=== PATIENT | female | born 1945 | race Caucasian/White ===

== ENCOUNTER → 2017-10-15 | Outpatient (CLI) | payer OTHER, MEDICARE ==
[~2017-10-15] MED LIST: ACETAMINOPHEN650 M5 PO; ALDACTONE25 MG PO; CARDIZEM CD120 MG PO; LEVOXYL150 MCG PO; LIPITOR80 MG PO; LISINOPRIL10 MG PO; LISINOPRIL20 MG PO; LISINOPRIL5 MG PO; PACERONE 200 M200 M1 PO; PRADAXA150 MG PO; TOPROL XL25 MG PO; XARELTO20 MG PO
[2017-10-15 09:07] LABS: HEMATOCRIT 47.2 % (37.0-47.0); HEMOGLOBIN 15.9 gm/dL (12.0-15.0); MCHC 33.7 g/dL (28.0-37.0); MCV 94.9 fL (80.0-100.0); RBC 4.97 mil/uL (4.20-5.00); RDW 13.7 % (10.5-14.5); WBC 6.5 thou/uL (4.0-11.0)
[2017-10-15 09:28] LABS: CALCIUM 9.1 mg/dL (8.5-10.1); CREATININE 1.2 mg/dL (0.6-1.0); POTASSIUM 4.3 mmol/L (3.5-5.1)
[2017-10-15 09:34] LABS: ALBUMIN 3.6 g/dL (3.4-5.0); TOTAL BILIRUBIN 1.3 mg/dL (<0.1-1.0)
== END ==
LOC: LABMALL 08:25 → CAT 12:23
PROVIDERS: Internal Medicine Cardiovascular Disease
DX: I48.91 Unspecified atrial fibrillation (principal); J98.11 Atelectasis; I10 Essential (primary) hypertension; E78.5 Hyperlipidemia, unspecified; E03.9 Hypothyroidism, unspecified; G47.33 Obstructive sleep apnea (adult) (pediatric)

== ENCOUNTER 2017-10-21 06:42 | Observation (INO) | payer OTHER, MEDICARE ==
[2017-10-21] VITALS (7 sets, daily range): BP systolic 97–122; BP diastolic 50–85
[~2017-10-21] VITALS: Ht 177.8 cm; Wt 118.4 kg
--- NOTE | ~2017-10-21 | P ---
[facility] [place] [address] PROCEDURE REPORT Name: JARED CALLES Room #: 201-P [facility] Max MRaymond#: [id number] Admission: 10/21/17 Attend Phys: Javier May MD Discharge: 10/22/17 Date of : 45 Report #: [id number] THIS REPORT FOR: //name// CC: Javier Malik DATE OF SERVICE: 11/05/2017 PREOPERATIVE DIAGNOSIS: Paroxysmal atrial fibrillation. HISTORY OF PRESENT ILLNESS: The patient is a 72-year-old with history of paroxysmal AFib, resolved nonischemic cardiomyopathy as well as hypertension and hyperlipidemia who is here for an AFib ablation. PROCEDURES PERFORMED: 1. AFib ablation, CPT code 43289. 2. 3D mapping, CPT code 00469. 3. Intracardiac echo, CPT code 51528. PROCEDURE: The patient was brought to the EP laboratory in a fasting and sedated state and prepped and draped in a sterile fashion. I obtained access to the right femoral vein times 3, placing an 8-Guamanian, 9-Guamanian and 7-Guamanian short sheath into the right femoral vein using the modified Seldinger technique. At baseline, the patient was in AFib with a ventricular cycle length of 530 milliseconds, QRS duration 120 milliseconds, QT interval 405 milliseconds. Using intracardiac ultrasound, a 3D geometry of the left atrium was created and this was merged with the cardiac CT scan. The patient was then systemically heparinized and a transseptal was performed using an SL1 sheath and a [place] needle. Next, I placed a [employer] Colon Lasso catheter in the left atrium and obtained 3D geometry of the left atrium. Next, the SL1 sheath was exchanged for the cryo sheath. Next, I isolated the left superior pulmonary vein with 2 freezes and it isolated within 60 seconds of the second freeze. I then turned my attention to the left inferior pulmonary vein. This vein required a total of 5 freezes, but would reconnect after approximately 1 minute. After the fifth freeze, the vein isolated after 30 seconds and this remained isolated. I then turned my attention to the right-sided veins with phrenic nerve pacing performed from the decapolar catheter placed up in the right subclavian vein. The right superior pulmonary vein isolated after three 4 minute freezes in the right inferior pulmonary vein, the right inferior pulmonary vein required a total of 3 freezes. The right inferior vein had both an upper and lower branch and in order to obtain isolation, I had to subselect to each of these branches. Next, the patient was cardioverted and all veins were isolated, the left inferior pulmonary vein had reconnected after the fourth freeze and as discussed, the fifth freeze resulted in isolation in 30 seconds. As such, all veins were isolated. The patient was doing well. I used intracardiac ultrasound to verify that there was no pericardial effusion, then the patient received systemic [address] [address] PROCEDURE REPORT Name: JARED CALLES Room #: 201-P [facility] Garza#: [id number] Admission: 10/21/17 Attend Phys: Javier May MD Discharge: 10/22/17 Date of : 45 Report #: [id number] protamine and once the ACT was within acceptable range, all catheters and sheaths were pulled, hemostasis obtained, and the patient awoke neurologically and hemodynamically intact. CONCLUSIONS: Successful AFib ablation with isolation of the pulmonary veins. <ELECTRONICALLY SIGNED> By: Javier May MD 11/15/17 1748 1432 1855 Javier May MD /nt
[~2017-10-21 06:42] MED LIST changes: -LISINOPRIL5 MG PO; -PRADAXA150 MG PO; -TOPROL XL25 MG PO
[2017-10-21 07:13] LABS: ABSOLUTE NEUTROPHILS 4.2 thou/uL (1.4-8.2); BASOPHILS 0.4 % (0.0-2.0); HEMATOCRIT 47.7 % (37.0-47.0); LYMPHOCYTES 30.4 % (24.0-44.0); MCH 31.7 pg (26.0-34.0); MCHC 33.6 g/dL (28.0-37.0); MCV 94.5 fL (80.0-100.0); MONOCYTES 10.2 % (1.0-8.0); PLATELET COUNT 163 thou/uL (150-400); RBC 5.05 mil/uL (4.20-5.00); WBC 7.3 thou/uL (4.0-11.0)
[2017-10-21 07:21] LABS: CALCIUM 8.9 mg/dL (8.5-10.1); CREATININE 1.3 mg/dL (0.6-1.0); POTASSIUM 4.6 mmol/L (3.5-5.1)
[2017-10-21] MEDS ORDERED: LISINOPRIL5 MG PO (07:23)
[2017-10-21] MEDS ORDERED: PRADAXA150 MG PO (07:24)
[2017-10-21] MEDS ORDERED: TOPROL XL25 MG PO (07:25)
[2017-10-21 07:27] LABS: ALBUMIN 3.6 g/dL (3.4-5.0); TOTAL BILIRUBIN 0.7 mg/dL (<0.1-1.0); TOTAL PROTEIN 7.1 g/dL (6.4-8.2)
[2017-10-21 07:28] LABS: APTT 40.7 Seconds (24.5-32.8); INR 1.1; PROTIME 11.1 Seconds (9.3-11.4)
[2017-10-22 02:07] VITALS: BP 108/57
[2017-10-22 04:42] VITALS: BP 83/48
[2017-10-22 07:18] VITALS: BP 93/58
[2017-10-22 09:31] VITALS: BP 113/70
== END 2017-10-22 10:35 | disposition home or self-care (01) ==
LOC: CATH 06:42 → 2N 13:53 → ENTRNSPT 10-22 10:22 → EDTRNSPTSTS 10-22 10:28 → 2N 10-22 10:35
PROVIDERS: Internal Medicine Cardiovascular Disease
DX: I48.0 Paroxysmal atrial fibrillation (principal); E78.5 Hyperlipidemia, unspecified; I49.3 Ventricular premature depolarization; I48.91 Unspecified atrial fibrillation; E03.9 Hypothyroidism, unspecified; Z98.890 Other specified postprocedural states; Z85.3 Personal history of malignant neoplasm of breast; I10 Essential (primary) hypertension
CPT/HCPCS: 62110; 62900; 65020; 65040; 65043; 70005

== ENCOUNTER → 2017-11-05 | Outpatient (CLI) | payer OTHER, MEDICARE ==
[~2017-11-05] VITALS: Ht 177.8 cm; Wt 116.1 kg
[~2017-11-05] MED LIST changes: +LISINOPRIL5 MG PO; +PRADAXA150 MG PO; +TOPROL XL25 MG PO
--- NOTE | ~2017-11-05 | P ---
[facility] [place] [address] PROCEDURE REPORT Name: WILLIAN CALLESINE [id number] Admission: 11/05/17 Attend Phys: Javier May MD Discharge: Date of : 45 Report #: [id number] THIS REPORT FOR: //name// CC: Javier Malik PREOPERATIVE DIAGNOSIS: Atrial fibrillation. POSTOPERATIVE DIAGNOSIS: Atrial fibrillation. DESCRIPTION OF PROCEDURE: The patient was brought to the procedure suite in a fasting and unsedated state. She underwent informed consent. She was then sedated by Anesthesiology Service. She then underwent 200 joule synchronized cardioversion with religious of sinus rhythm. CONCLUSIONS: Successful cardioversion with religious of sinus rhythm. <ELECTRONICALLY SIGNED> By: Javier May MD 12/13/17 1407 1326 192 Javier May MD /nt
--- NOTE | ~2017-11-05 | EKG ---
[place] [address] [facility] 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: Sandra NAIR : 1945 Requested By: Javier May Order Number: [id number] MD: Art Johnson Measurements Intervals [place] Rate: 53 P: 14 ME: 191 QRS: -37 QRSD: 146 T: -61 QT: 525 QTc: 493 Interpretive Statements Sinus rhythm Leftward axis Nonspecific intraventricular conduction delay ST and T wave abnormality, consider inferolateral ischemia Compared to ECG 06/06/2013 06:49:12 Sinus rhythm has replaced atrial fibrillation Electronically Signed On 11-06-2017 7:57:36 FELLER OPERATOR by Art Johnson [email or web address] <ELECTRONICALLY SIGNED> By: Art Johnson MD, [facility] 11/06/17 0757 1237 1237 Art Johnson MD, [facility] /EPI
[2017-11-05 10:20] VITALS: BP 110/75
[2017-11-05 10:31] LABS: HEMOGLOBIN 15.2 gm/dL (12.0-15.0); MCH 31.8 pg (26.0-34.0); MCHC 33.1 g/dL (28.0-37.0); MCV 96.1 fL (80.0-100.0); RBC 4.78 mil/uL (4.20-5.00); RDW 14.4 % (10.5-14.5); WBC 6.6 thou/uL (4.0-11.0)
[2017-11-05 10:42] LABS: CALCIUM 8.9 mg/dL (8.5-10.1); CREATININE 1.4 mg/dL (0.6-1.0); POTASSIUM 4.3 mmol/L (3.5-5.1)
[2017-11-05 10:44] LABS: INR 1.3; PROTIME 13.1 Seconds (9.3-11.4)
== END | disposition home or self-care (01) ==
LOC: CATH 09:57
PROVIDERS: Internal Medicine Cardiovascular Disease
DX: I48.91 Unspecified atrial fibrillation (principal); I10 Essential (primary) hypertension; E78.5 Hyperlipidemia, unspecified; I42.9 Cardiomyopathy, unspecified; E03.9 Hypothyroidism, unspecified; Z98.890 Other specified postprocedural states; Z79.899 Other long term (current) drug therapy; Z79.01 Long term (current) use of anticoagulants; Z96.652 Presence of left artificial knee joint; Z85.3 Personal history of malignant neoplasm of breast; Z82.49 Family history of ischemic heart disease and other diseases of the circulatory system
CPT/HCPCS: 62110; 62900

== ENCOUNTER → 2018-12-04 | Outpatient (CLI) | payer OTHER, MEDICARE ==
[~2018-12-04] VITALS: Ht 177.8 cm; Wt 113.4 kg
[2018-12-04 07:16] VITALS: BP 145/84
--- NOTE | 2018-12-04 08:44 | NUR ---
Post EVONNE monitoring. Pt resting well. Awakes per verbal commands. VSS. SR with PVCs noted. Family in room. Provider spoke with family. Will continue to monitor.
--- NOTE | 2018-12-04 09:29 | TEE ---
[facility] [place] [address] TRANSESOPHAGEAL ECHOCARDIOGRAM Name: JARED CALLES Room #: REG CL CooperAnaDemetriAna#: [id number] ������������� Admission: 12/04/18 ������������� Attend Phys: Art Johnson, Discharge: ��� ������������� ��� Date of : 45 Date of Service: 12/04/18 0928 �� Report #: [id number] �������� ��������������������������������������������[id number] THIS REPORT FOR: //name// APPROVED REPORT Study performed: 12/04/2018 08:06:18 EXAM: Comprehensive 2D, Doppler, and color-flow Echocardiogram Patient Location: [facility] Room #: 9 BSA: 2.29 HR: 70 bpm BP: 153/80 mmHg Other Information Study Quality: Excellent Indications Mitral Valve Disease Mitral Valve Prolapse Echo Enhancing Agent Indication: Rule out Shunt Agent(s) / Amount(s) Used: Agitated Saline 7 cc Procedure After obtaining informed consent, patient underwent transesophageal echo in the [employer]. Type of Sedation : Conscious Sedation Sedation was administered by Nurse. Sedation was achieved intravenously with: Versed (5 mg) Fentanyl (50mcg) Transesophageal probe was inserted and advanced into esophagus without difficulty by Art Johnson MD. Echo enhancement indication: R/O Septal defect. Echo enhancement agent administered: Agitated Saline The EVONNE was performed without complications. Throughout the procedure, the blood pressure, pulse oximetry, cardiac rhythm, and rate were monitored. The patient tolerated the procedure without adverse effects. Recovery from conscious sedation was uneventful and vital signs were stable. Left Ventricle [facility] [address] [place] [address] TRANSESOPHAGEAL ECHOCARDIOGRAM Name: JARED CALLES Room #: REG COUNT INCLUDES THE [facility]#: [id number] ������������� Admission: 12/04/18 ������������� Attend Phys: Art Johnson, Discharge: ��� ������������� ��� Date of : 45 Date of Service: 12/04/18 0928 �� Report #: [id number] �������� ��������������������������������������������[id number] The left ventricle is normal size. There is normal left ventricular wall thickness. Left ventricular systolic function is mild to moderately decreased. LVEF is 40%. Right Ventricle The right ventricle is normal size. The right ventricular systolic function is normal. Atria Left atrium is dilated. No thrombus is visualized in the left atrium or appendage. No shunting by contrast bubble injection The right atrium size is normal. Aortic Valve The aortic valve is normal in structure. No aortic regurgitation is present. There is no aortic valvular stenosis. Mitral Valve Mitral valve leaflets appear myxomatous, bileaflet prolapse Moderate to moderately severe mitral regurgitation No evidence of mitral valve stenosis. Tricuspid Valve The tricuspid valve is normal in structure. There is no tricuspid valve regurgitation noted. Pulmonic Valve The pulmonary valve is normal in structure. There is no pulmonic valvular regurgitation. Great Vessels The aortic root is normal in size. IVC is normal in size and collapses >50% with inspiration. Pericardium There is no pericardial effusion. Critical Notification Critical Value: Yes <Conclusion> Left ventricular systolic function is mild to moderately decreased. LVEF is 40%. Left atrium is dilated. No thrombus is visualized in the left atrium or appendage. [facility] [address] [place] [address] TRANSESOPHAGEAL ECHOCARDIOGRAM Name: JARED CALLES Room #: REG [facility] [id number] ������������� Admission: 12/04/18 ������������� Attend Phys: Art Johnson, Discharge: ��� ������������� ��� Date of : 45 Date of Service: 12/04/18927 �� Report #: [id number] �������� ��������������������������������������������[id number] No shunting by contrast bubble injection The aortic valve is normal in structure. No aortic regurgitation or stenosis Mitral valve leaflets myxomatous, bileaflet prolapse Moderate to moderately severe mitral regurgitation There is no pericardial effusion. ��������������������������������������������� <ELECTRONICALLY SIGNED> ���������������������������������������� By: Art Johnosn MD, [facility] ��������������������������������������������� 12/04/18927 7 7 Art Johnson MD, [facility] /INF
== END | disposition home or self-care (01) ==
LOC: CATH 06:49
DX: I35.1 Nonrheumatic aortic (valve) insufficiency (principal); I34.1 Nonrheumatic mitral (valve) prolapse; I10 Essential (primary) hypertension; E78.5 Hyperlipidemia, unspecified; E03.9 Hypothyroidism, unspecified; I42.9 Cardiomyopathy, unspecified; I48.91 Unspecified atrial fibrillation; Z82.49 Family history of ischemic heart disease and other diseases of the circulatory system; Z96.652 Presence of left artificial knee joint; Z98.890 Other specified postprocedural states; Z79.899 Other long term (current) drug therapy; Z85.3 Personal history of malignant neoplasm of breast; Z79.01 Long term (current) use of anticoagulants

== ENCOUNTER → 2019-06-11 | Outpatient (CLI) | payer OTHER, MEDICARE ==
[~2019-06-11] VITALS: Ht 177.8 cm; Wt 113.4 kg
[2019-06-11 07:30] LABS: ABSOLUTE NEUTROPHILS 4.8 thou/uL (1.4-8.2); BASOPHILS 0.7 % (0.0-2.0); EOSINOPHILS 1.7 % (0.0-3.0); HEMATOCRIT 45.6 % (37.0-47.0); HEMOGLOBIN 14.9 gm/dL (12.0-15.0); LYMPHOCYTES 26.1 % (24.0-44.0); MCH 32.6 pg (26.0-34.0); MCHC 32.8 g/dL (28.0-37.0); MCV 99.5 fL (80.0-100.0); MONOCYTES 9.3 % (1.0-8.0); PLATELET COUNT 139 thou/uL (150-400); POLYS 62.2 % (36.0-66.0); RBC 4.58 mil/uL (4.20-5.00); RDW 14.2 % (10.5-14.5); WBC 7.8 thou/uL (4.0-11.0)
[2019-06-11 07:39] LABS: CALCIUM 8.8 mg/dL (8.5-10.1); CREATININE 1.2 mg/dL (0.6-1.0); POTASSIUM 4.4 mmol/L (3.5-5.1)
[2019-06-11 07:40] VITALS: BP 116/85
[2019-06-11 07:44] LABS: ALBUMIN 3.4 g/dL (3.4-5.0); TOTAL BILIRUBIN 0.9 mg/dL (<0.1-1.0); TOTAL PROTEIN 6.5 g/dL (6.4-8.2)
[2019-06-11 07:49] LABS: INR 1.3; PROTIME 13.2 Seconds (9.3-11.4)
--- NOTE | 2019-06-18 11:39 | P ---
[facility] [place] [address] PROCEDURE REPORT Name: JARED CALLES Room #: REG [facility] Greg#: [id number] Admission: 06/11/19 Attend Phys: Javier May MD Discharge: Date of : 45 Report #: [id number] THIS REPORT FOR: //name// CC: Javier May Lolly Malik DATE OF SERVICE: 06/16/2019 CARDIOVERSION PREOPERATIVE DIAGNOSIS: Atrial fibrillation. POSTOPERATIVE DIAGNOSIS: Atrial fibrillation. PROCEDURES: DC cardioversion. DESCRIPTION OF PROCEDURE: The patient underwent informed consent. She was prepped in a standard fashion. The patient was sedated by the Anesthesiology service and once sedated, she underwent a 200 joule synchronized cardioversion with presybeterian of sinus rhythm. There were no procedure related complications. CONCLUSIONS: Successful DC cardioversion with presybeterian of sinus rhythm. <ELECTRONICALLY SIGNED> By: Javier May MD 06/18/19 1139 1517 0206 Javier May MD /nt
== END | disposition home or self-care (01) ==
LOC: CATH 06:43
PROVIDERS: Internal Medicine Cardiovascular Disease
DX: I48.91 Unspecified atrial fibrillation (principal); I10 Essential (primary) hypertension; E78.5 Hyperlipidemia, unspecified; E03.9 Hypothyroidism, unspecified; I42.9 Cardiomyopathy, unspecified; Z79.01 Long term (current) use of anticoagulants; Z85.3 Personal history of malignant neoplasm of breast; Z98.890 Other specified postprocedural states; Z79.899 Other long term (current) drug therapy; Z96.652 Presence of left artificial knee joint
CPT/HCPCS: 62110; 62900